=== PATIENT | male | born 1985 | race Caucasian/White ===

== ENCOUNTER 2017-03-21 20:58 | Emergency (ER) | payer BC ==
[~2017-03-21] VITALS: Ht 195.6 cm; Wt 106.8 kg
[2017-03-21 21:00] VITALS: TEMP 98.4
[2017-03-21] MEDS ORDERED: NORCO 325 MG-51 TAB PO (22:02)
[2017-03-21 22:04] VITALS: BP 136/92; PULSE 91
== END 2017-03-21 22:28 | disposition home or self-care (01) ==
LOC: COL.ER 20:58
DX: S43.101A Unspecified dislocation of right acromioclavicular joint, initial encounter (principal); W18.30XA Fall on same level, unspecified, initial encounter; Y92.830 Public park as the place of occurrence of the external cause

== ENCOUNTER 2019-10-01 07:53 | Day surgery (SDC) | payer BC ==
[~2019-10-01] VITALS: Ht 195.6 cm; Wt 106.8 kg
[~2019-10-01 07:53] MED LIST: NORCO 325 MG-51 TAB PO
[2019-10-01] MEDS ORDERED: PRILOSEC 20MG20 MG PO (08:01)
[2019-10-01] MEDS ORDERED: PROPECIA1 MG PO (08:02)
[2019-10-01] MEDS ORDERED: LEXAPRO 10MG10 MG PO (08:02)
[2019-10-01 08:09] VITALS: BP 144/96; PULSE 74; TEMP 74
[2019-10-01 10:10] VITALS: BP 128/101; PULSE 87; TEMP 97.6
--- NOTE | 2019-10-01 10:10 | NUR ---
The patient arrived back to [facility] at this time. The patient ambulated from the cart to the recliner in his room with the stand by assist and appeared to tolerate the activity well. Post procedure vital signs were started at this time. The patient's is at his bedside and has already spoke with the doctor regarding the findings of the procedure. The patient agrees to try some water at this time. Will continue to monitor the patient. Call light is within reach.
[2019-10-01 10:25] VITALS: BP 134/87; PULSE 71
--- NOTE | 2019-10-01 10:25 | NUR ---
The patient appears to be tolerating the water well. The patient's vital signs appear stable. Call light remains within reach. Will continue to monitor the patient.
[2019-10-01 10:40] VITALS: BP 130/96; PULSE 73
--- NOTE | 2019-10-01 10:45 | NUR ---
Discharge instructions were reviewed with the patient and his at this time. They both verbalized understanding and have no questions for the nurse at this time. The patient's IV to his right hand was removed and a pressure dressing was applied to the site. The nurse instructed the patient to get dressed and notify the staff when he is ready to be escorted out.
--- NOTE | 2019-10-01 10:48 | NUR ---
The patient was escorted out via ambulation to a private vechile by AARON Akhtar. The patient's belongings and discharge paperwork were sent with him. The patient's is present to drive him home.
[2019-10-01 12:40] VITALS: BP 136/83; PULSE 75
== END 2019-10-01 10:48 | disposition home or self-care (01) ==
LOC: SDCO 07:53
DX: K22.70 Barrett's esophagus without dysplasia (principal); K44.9 Diaphragmatic hernia without obstruction or gangrene; N40.0 Benign prostatic hyperplasia without lower urinary tract symptoms; F32.9 Major depressive disorder, single episode, unspecified; Z88.0 Allergy status to penicillin
CPT/HCPCS: J2250; J3010; J7030